=== PATIENT | male | born 1995 ===

== ENCOUNTER 2016-11-17 01:08 | Emergency (ER) | payer OTHER ==
--- NOTE | 2016-11-17 01:11 | ED PDOC ---
Arrival/HPI - General Time Seen by Provider: 11/17/16 01:09 Historian: Patient - History of Present Illness Narrative History of Present Illness (Text): 11/17/16 01:11 Elijah Shi is a 21 year old male who presents to the Emergency department s/ p left wrist injury. Patient states a heavy box landed on his left wrist while at work. Patient now complaining of pain to the area. Patient denies any weakness/numbness/tingling in the extremity, or any other complaints. Time/Duration: Other (tonight) Symptom Course: Unchanged Activities at Onset: Light Context: Work Past Medical History - Provider Review Nursing Documentation Reviewed: Yes Family/Social History - Physician Review Nursing Documentation Reviewed: Yes Family/Social History: No Known Family HX Allergies/Home Meds Allergies/Adverse Reactions: Allergies No Known Allergies Allergy (Verified 11/17/16 01:12) Home Medications: Home Meds Medication Instructions Recorded Confirmed No Known Home Med 11/17/16 11/17/16 Review of Systems - Physician Review All systems were reviewed & negative as marked: Yes - Review of Systems Constitutional: Normal Eyes: Normal ENT: Normal Respiratory: Normal Cardiovascular: Normal Gastrointestinal: Normal Genitourinary Male: Normal Musculoskeletal: Arthralgias (+left wrist pain). absent: Back Pain Skin: Normal Neurological: Normal. absent: Headache, Dizziness Endocrine: Normal Hemo/Lymphatic: Normal Psychiatric: Normal Physical Exam Vital Signs Reviewed: Yes Vital Signs Temp Pulse Resp BP Pulse Ox 11/17/16 02:29 83 14 155/85 H 98 11/17/16 01:12 97.8 F 86 16 160/71 H 96 11/17/16 01:11 97.8 F 86 16 160/71 H 96 Temperature: Afebrile Blood Pressure: Normal Pulse: Regular Respiratory Rate: Normal Appearance: Positive for: Well-Appearing, Non-Toxic, Comfortable Pain Distress: None Mental Status: Positive for: Alert and Oriented X 3 - Systems Exam Head: Present: Atraumatic, Normocephalic Pupils: Present: PERRL Extroacular Muscles: Present: EOMI Conjunctiva: Present: Normal Upper Extremity: Present: Normal Inspection, Normal ROM, NORMAL PULSES, Neurovascularly Intact, Capillary Refill < 2s. No: Cyanosis, Edema, Swelling, Erythema, Temperature Abnormalties, Deformity Lower Extremity: Present: Normal Inspection. No: Edema Neurological: Present: GCS=15, CN II-XII Intact, Speech Normal Skin: Present: Warm, Dry, Normal Color. No: Rashes Psychiatric: Present: Alert, Oriented x 3, Normal Insight, Normal Concentration Medical Decision Making ED Course and Treatment: 11/17/16 01:11 Impression: 21 year old male complaining of left wrist pain. Differential Diagnosis include but are not limited to: fracture vs. sprain Plan: -- XR Left Wrist -- XR Left Hand -- Reassess and disposition Progress Notes: Pt refused any pain medication at this time. 11/17/16 01:45 Reviewed radiology, XR Left Wrist shows no evidence of acute fracture. XR Left Hand shows no evidence of acute fracture. 11/17/16 01:49 On re-evaluation, the patient feels better and is in no acute distress. Pt placed in wrist splint. I have discussed the results and plan with the patient, who expresses understanding. Patient in agreement with plan to discharged home. Patient is stable for discharge. Patient was instructed to follow up with physician/orthopedist/clinic in 1-2 days or return if symptoms worsen or new concerning symptoms arise. Re-evaluation Time: 01:49 Reassessment Condition: Re-examined, Improved - RAD Interpretation Radiology Orders: 11/17/16 01:27 HAND LEFT 3 VIEWS ROUTINE [RAD] Stat WRIST, LEFT 3 VIEWS [RAD] Stat - Medication Orders Current Medication Orders: Discontinued Medications Ibuprofen (Motrin Tab) 400 mg PO ONCE STA Stop: 11/17/16 01:51 Last Admin: 11/17/16 02:03 Dose: 400 mg - Scribe Statement The provider has reviewed the documentation as recorded by the Scribjesse Horne All medical record entries made by the Lalithaibjesse were at my direction and personally dictated by me. I have reviewed the chart and agree that the record accurately reflects my personal performance of the history, physical exam, medical decision making, and the department course for this patient. I have also personally directed, reviewed, and agree with the discharge instructions and disposition. Disposition/Present on Arrival - Present on Arrival Any Indicators Present on Arrival: No - Disposition Have Diagnosis and Disposition been Completed?: Yes Diagnosis: Injury of wrist or hand Disposition: HOME/ ROUTINE Disposition Time: 01:49 Condition: GOOD Discharge Instructions (ExitCare): Contusion in Adults (ED) Print Language: ICELANDIC Additional Instructions: use splint 4 to 5 days motrin for pain Referrals: PCP,NO [Primary Care Provider] - Follow up with primary Forms: WORK NOTE
[2016-11-17 01:12] VITALS: TEMP 97.8; BMI 24.0
[2016-11-17 02:29] VITALS: BP 155/85; PULSE 83; RESP 14; O2SAT 98
--- NOTE | 2016-11-17 09:20 | RAD ---
PROCEDURE: Left Wrist Radiographs. HISTORY: trauma COMPARISON: None. FINDINGS: BONES: Normal. No fracture. JOINTS: Normal. No dislocation. SOFT TISSUES: Normal. OTHER FINDINGS: None. IMPRESSION: Normal left wrist radiographs.
--- NOTE | 2016-11-17 09:24 | RAD ---
PROCEDURE: Left Hand Radiographs. HISTORY: pain COMPARISON: None. FINDINGS: BONES: Normal. No fracture. JOINTS: Normal. No osteoarthritic changes. SOFT TISSUES: Normal. OTHER FINDINGS: None. IMPRESSION: Normal left hand radiographs.
== END 2016-11-17 02:30 | disposition home or self-care (01) ==
LOC: ED 01:08 → MERGE 01:08 → ED 02:30
DX: S69.92XA Unspecified injury of left wrist, hand and finger(s), initial encounter (principal); W20.8XXA Other cause of strike by thrown, projected or falling object, initial encounter; Y92.9 Unspecified place or not applicable; Y99.0 Civilian activity done for income or pay